=== PATIENT | female | born 2000 | race Caucasian/White ===

== ENCOUNTER 2019-05-14 12:51 | Outpatient (CLI) | payer OTHER | END 2019-05-14 13:01 | disposition home or self-care (01) | LOC: SONOGRAMA 12:51 | DX: N60.11 Diffuse cystic mastopathy of right breast (principal); N60.12 Diffuse cystic mastopathy of left breast ==

== ENCOUNTER 2019-10-12 08:19 | Outpatient (CLI) | payer OTHER | END 2019-10-12 08:35 | disposition home or self-care (01) | LOC: SONOGRAMA 08:19 | PROVIDERS: ATTEND Surgery | DX: N61.1 Abscess of the breast and nipple (principal) ==

== ENCOUNTER 2019-10-12 10:35 | Outpatient (CLI) | payer OTHER | END 2019-10-12 15:00 | disposition home or self-care (01) | LOC: LAB 10:35 | PROVIDERS: ATTEND Surgery | DX: N61.1 Abscess of the breast and nipple (principal) ==